=== PATIENT | female | born 1960 | race Caucasian/White ===

== ENCOUNTER 2024-08-11 11:05 | Emergency (ER) | payer BC ==
[~2024-08-11] VITALS: Ht 170.2 cm; Wt 99.8 kg
[2024-08-11] MEDS ORDERED: Diphth,Pertuss(Acell),Tet Vac 0.5 ML VIAL IM ONE (12:50)
== END 2024-08-11 13:07 | disposition home or self-care (01) ==
LOC: ER 11:05
DX: S61.214A Laceration without foreign body of right ring finger without damage to nail, initial encounter (principal); Z88.1 Allergy status to other antibiotic agents; Z91.041 Radiographic dye allergy status; Z88.8 Allergy status to other drugs, medicaments and biological substances; W23.0XXA Caught, crushed, jammed, or pinched between moving objects, initial encounter
CPT/HCPCS: 64450; 73130; 90471; 90715; 99283-25